=== PATIENT | male | born 1970 | race Caucasian/White ===

== ENCOUNTER 2018-10-16 00:49 | Emergency (ER) | payer OTHER ==
[~2018-10-16] VITALS: Ht 190.5 cm; Wt 113.8 kg
[2018-10-16 00:53] VITALS: Ht 190.5 cm; Wt 113.8 kg
--- NOTE | 2018-10-16 05:08 | ERD ---
ER Documentation Chief Complaint Chief Complaint right earache x 2 weeks HPI This is a 48-year-old male who presents to emerge department with complaints of right ear pain for about 2 weeks. Stated that he is diabetic and has not taken his medications for about 3 years. Denies headache, head injury, loss of consciousness, dizziness, neck pain, neck stiffness, throat pain, difficulty swallowing, difficulty breathing lying flat, shoulder pain, chest pain, back pain, abdominal pain, nausea, vomiting, constipation, diarrhea, urinary symptoms, loss of bowel and bladder control, trauma, injury, falls, difficulty walking due to pain, numbness or tingling sensation, calf pain, recent travel, recent major surgery in the last 3 weeks, calf pain, recent long travel, recent exposure to any illness, recent antibiotic use in the last 3 months, fever, chills, seizures. Past medical history: Surgical history: Social: Denies smoking, use of alcoholic beverages, use of illegal drugs. ROS All systems reviewed and are negative except as per history of present illness. Medications Home Meds Active Scripts Metformin* (Glucophage*) 1,000 Mg Tablet, 1000 MG PO BID, #60 TAB Prov:PASILABANMARQUISEAR F 10/16/18 Ibuprofen* (Motrin*) 800 Mg Tab, 800 MG PO Q6H PRN for PAIN AND OR ELEVATED TEMP, #30 TAB Prov:CELSO BAEZ F 10/16/18 Ciprofloxacin Hcl/Dexameth (Ciprodex Otic Suspension) 7.5 Ml Drops.susp, 4 DROP RIGHT EAR BID for 7 Days, EA Prov:CELSO BAEZ F 10/16/18 Amoxicillin* (Amoxicillin*) 500 Mg Cap, 500 MG PO TID for 7 Days, CAP Prov:PASILABANMARQUISEAR F 10/16/18 Discontinued Scripts Metformin* (Glucophage*) 500 Mg Tab, 500 MG PO BID, #20 TAB Prov:MARQUISE BAEZAR F 10/16/18 PMhx/Soc Medical and Surgical Hx: pt denies Medical Hx, pt denies Surgical Hx Hx Alcohol Use: No Hx Substance Use: No Hx Tobacco Use: No Smoking Status: Never smoker Physical Exam Vitals Physical Exam Const: No acute distress Head: Atraumatic Eyes: Normal Conjunctiva ENT: Normal External Ears, Nose and Mouth. Right ear: External canal has erythema. TM is mildly erythematous. No bleeding. No discharge. No hearing loss. No mastoid tenderness. Left ear: TM is not erythematous. No bleeding. No discharge. No hearing loss. No mastoid tenderness. Neck: Full range of motion. No meningismus. No nuchal rigidity. No signs of meningeal irritation. Resp: Clear to auscultation bilaterally Cardio: Regular rate and rhythm, no murmurs Abd: Soft, non tender, non distended. Normal bowel sounds. No abdominal tenderness. Skin: No petechiae or rashes. No diaphoresis. Color appears normal for ethnicity. Back: No midline or flank tenderness Ext: No cyanosis, or edema Neur: Awake and alert. Romberg test negative. No neurological deficit. Psych: Normal Mood and Affect Results 24 hrs Laboratory Tests Test 10/16/18 05:19 10/16/18 05:36 10/16/18 05:44 10/16/18 07:02 Bedside Glucose 404 mg/dL 364 mg/dL White Blood Count 8.0 10^3/ul Red Blood Count 5.30 10^6/ul Hemoglobin 15.6 g/dl Hematocrit 45.2 % Mean Corpuscular 85.3 fl Volume Mean Corpuscular 29.4 pg Hemoglobin Mean Corpuscular 34.5 g/dl Hemoglobin Concen t Red Cell 12.1 % Distribution Width Platelet Count 215 10^3/UL Mean Platelet 10.3 fl Volume Immature 0.400 % Granulocytes % Neutrophils % 60.6 % Lymphocytes % 30.3 % Monocytes % 6.3 % Eosinophils % 2.0 % Basophils % 0.4 % Nucleated Red 0.0 /100WBC Blood Cells % Immature 0.030 10^3/ul Granulocytes # Neutrophils # 4.8 10^3/ul Lymphocytes # 2.4 10^3/ul Monocytes # 0.5 10^3/ul Eosinophils # 0.2 10^3/ul Basophils # 0.0 10^3/ul Nucleated Red 0.0 10^3/ul Blood Cells # Sodium Level 139 mmol/L Potassium Level 4.2 mmol/L Chloride Level 100 mmol/L Carbon Dioxide 29 mmol/L Level Anion Gap 10 Blood Urea 16 mg/dl Nitrogen Creatinine 0.87 mg/dl Est Glomerular > 60 mL/min Filtrat Rate mL/min Glucose Level 454 mg/dl Calcium Level 10.0 mg/dl Total Bilirubin 0.5 mg/dl Direct Bilirubin 0.00 mg/dl Indirect 0.5 mg/dl Bilirubin Aspartate Amino 25 IU/L Transf (AST/SGOT) Alanine 34 IU/L Aminotransferase (ALT/SGPT) Alkaline 109 IU/L Phosphatase Total Protein 7.8 g/dl Albumin 4.4 g/dl Globulin 3.40 g/dl Albumin/Globulin 1.29 Ratio Urine Color STRAW Urine Clarity CLEAR Urine pH 6.0 Urine Specific 1.033 [place] Urine Ketones TRACE mg/dL Urine Nitrite NEGATIVE mg/dL Urine Bilirubin NEGATIVE mg/dL Urine NEGATIVE mg/dL Urobilinogen Urine Leukocyte NEGATIVE Les[place]/ul Esterase Urine Hemoglobin NEGATIVE mg/dL Urine Glucose 3+ mg/dL Urine Total NEGATIVE mg/dl Protein Current Medications Medications Dose Sig/Giulia Start Time Status Last (Trade) Ordered Route PRN Stop Time Admin Dose Reason Admin Sodium 1,000 ml @ Q1H ONCE 10/16/18 DC 10/16/18 Chloride 1,000 mls/hr IV 05:30 05:35 10/16/18 06:29 Insulin 6 unit ONCE ONCE 10/16/18 DC 10/16/18 Human SC 05:30 05:52 Regular 10/16/18 05:31 (Humulin R) Morphine 4 mg ONCE STAT 10/16/18 DC 10/16/18 Sulfate IV 06:08 06:13 (morphine) 10/16/18 06:09 Procedures/MDM Diagnostic tests: Patient requests blood sugar. Accu-Chek: 404 mg/d at 5:19 AM. Blood works: Reviewed. Urinalysis: Reviewed. Treatment: Saline lock. Normal saline IV bolus. Regular insulin 6 units subcu. Re-evaluation: Blood sugar has improved. Denies headache, dizziness, chest pain. No diaphoresis. No abdominal tenderness. Stated that he feels much better at this time and that he is ready to go home. No neurological deficits. Differential diagnosis I have low suspicion for sepsis, DKA, mastoiditis, peritonsillar abscess. Final diagnosis: Otitis media. Otitis externa. Hyperglycemia without DKA. Prescription: Cipro otic drops. Metformin. Amoxicillin. Motrin. Follow-up with PCP in the next 24-48 hours. PCP to refer patient to customs officer in the next 4 to 5 days. Come back here in the emergency department for any new symptoms or any worsening symptoms. All questions and concerns were answered. Patient and family members verbalized understanding and agreed with plan of care. Hemodynamically stable on discharge. Departure Diagnosis: Primary Impression: Hyperglycemia Additional Impressions: Otitis media Otitis externa Condition: Stable Additional Instructions: Follow-up with PCP in the next 24-48 hours. PCP to refer patient to customs officer in the next 4 to 5 days. Come back here in the emergency department for any new symptoms or any worsening symptoms. CELSO BAEZ October 16, 2018 05:08
[2018-10-16] MEDS ORDERED: INSULIN REGULAR, HUMAN 100 UNIT/1 ML 3ML VIAL SC ONE (05:30)
[2018-10-16] MEDS ORDERED: SOD CHLORIDE 0.9% 1,000 ML IV ONE (05:30)
[2018-10-16] MEDS ORDERED: morphine 4 MG/ML VIAL IV STA (06:08)
[2018-10-16] MEDS ORDERED: CIPR7.5D RIGHT EAR (06:09)
[2018-10-16] MEDS ORDERED: AMOX500C2 PO (06:09)
[2018-10-16] MEDS ORDERED: IBUP800T48 PO (06:10)
[2018-10-16] MEDS ORDERED: METF-849 PO (06:10)
[2018-10-16] MEDS ORDERED: MTF1000T PO (06:23)
[2018-10-16 07:13] VITALS: BP 120/84; PULSE 87; RESP 18
== END 2018-10-16 07:14 | disposition home or self-care (01) ==
LOC: FTE 00:49
DX: H60.91 Unspecified otitis externa, right ear (principal); H66.91 Otitis media, unspecified, right ear; E11.65 Type 2 diabetes mellitus with hyperglycemia
CPT/HCPCS: 80053; 81003; 82962; 85025; 96361; 96372; 96374; J1815; J2270; J7030; Z7502